=== PATIENT | male | born 1980 | race Caucasian/White ===

== ENCOUNTER 2017-04-09 17:29 | Emergency (ER) | payer OTHER ==
[~2017-04-09] VITALS: Ht 188 cm; Wt 104.3 kg
[2017-04-09] MEDS ORDERED: BACTRIM DS TAB1 EACH PO (18:36)
[2017-04-09] MEDS ORDERED: IBUPROFEN 600600 M1 PO (18:36)
[2017-04-09] MEDS ORDERED: ULTRAM 50MG TAB50 MG PO (18:36)
== END 2017-04-09 19:05 | disposition home or self-care (01) ==
LOC: ER 17:29
DX: L02.811 Cutaneous abscess of head [any part, except face] (principal); L02.414 Cutaneous abscess of left upper limb; L02.211 Cutaneous abscess of abdominal wall; L02.214 Cutaneous abscess of groin; F17.220 Nicotine dependence, chewing tobacco, uncomplicated; Z98.890 Other specified postprocedural states

== ENCOUNTER 2017-06-30 16:15 | Emergency (ER) | payer OTHER ==
[~2017-06-30] VITALS: Ht 188 cm; Wt 104.3 kg
[~2017-06-30 16:15] MED LIST: BACTRIM DS TAB1 EACH PO; IBUPROFEN 600600 M1 PO; ULTRAM 50MG TAB50 MG PO
[2017-06-30] MEDS ORDERED: AMOXICILLIN500 M1 PO (16:49)
[2017-06-30] MEDS ORDERED: IBUPROFEN 600600 M1 PO (16:49)
[2017-06-30] MEDS ORDERED: TESSALON PERLE100 MG PO (17:13)
== END 2017-06-30 17:17 | disposition home or self-care (01) ==
LOC: ER 16:15
DX: J02.0 Streptococcal pharyngitis (principal); F17.220 Nicotine dependence, chewing tobacco, uncomplicated

== ENCOUNTER 2017-10-02 16:39 | Emergency (ER) | payer OTHER ==
[~2017-10-02] VITALS: Ht 177.8 cm; Wt 90.7 kg
[~2017-10-02 16:39] MED LIST changes: +AMOXICILLIN500 M1 PO; +TESSALON PERLE100 MG PO
[2017-10-02] MEDS ORDERED: PROAIR HFA8.5 GM INH (17:44)
[2017-10-02] MEDS ORDERED: TUSSIONEX PENN115 ML PO (17:44)
[2017-10-02 18:26] VITALS: BP 128/71
== END 2017-10-02 18:27 | disposition home or self-care (01) ==
LOC: ER 16:39
DX: J06.9 Acute upper respiratory infection, unspecified (principal); R42 Dizziness and giddiness; M79.1 Myalgia; F17.200 Nicotine dependence, unspecified, uncomplicated

== ENCOUNTER 2017-11-01 02:22 | Emergency (ER) | payer OTHER ==
[~2017-11-01] VITALS: Ht 188 cm; Wt 97.5 kg
[~2017-11-01 02:22] MED LIST changes: +PROAIR HFA8.5 GM INH; +TUSSIONEX PENN115 ML PO
[2017-11-01 02:30] VITALS: BP 129/90
[2017-11-01 03:06] LABS: URINE BILIRUBIN NEGATIVE (Negative); URINE BLOOD NEGATIVE (Negative); URINE CLARITY CLEAR; URINE COLOR YELLOW; URINE GLUCOSE-RANDOM* NEGATIVE (Negative); URINE KETONES NEGATIVE (Negative); URINE LEUKOCYTES NEGATIVE (Negative); URINE NITRITE NEGATIVE (Negative); URINE PROTEIN (DIPSTICK) NEGATIVE (Negative); URINE SPECIFIC GRAVITY >= 1.030 (1.005-1.035); URINE UROBILINOGEN 0.2 E.U./dl (0.2-1.0)
[2017-11-01] MEDS ORDERED: IBUPROFEN 400400 M2 PO (03:11)
[2017-11-01] MEDS ORDERED: NORCO 5-325 TA1 EACH PO (03:11)
== END 2017-11-01 03:21 | disposition home or self-care (01) ==
LOC: ER 02:22
PROVIDERS: Emergency Medicine
DX: M94.0 Chondrocostal junction syndrome [Tietze] (principal); F17.220 Nicotine dependence, chewing tobacco, uncomplicated

== ENCOUNTER 2019-05-06 17:55 | Emergency (ER) | payer OTHER ==
[~2019-05-06] VITALS: Ht 188 cm; Wt 102.1 kg
[~2019-05-06 17:55] MED LIST changes: +IBUPROFEN 400400 M2 PO; +NORCO 5-325 TA1 EACH PO
[2019-05-06] MEDS ORDERED: NORCO 5-325 TA1 EAC2 PO (19:51)
[2019-05-06] MEDS ORDERED: AMOXICILLIN 50500 MG PO (19:51)
[2019-05-06 20:18] VITALS: BP 123/87
== END 2019-05-06 20:29 | disposition home or self-care (01) ==
LOC: ER 17:55
DX: S22.31XA Fracture of one rib, right side, initial encounter for closed fracture (principal); J02.9 Acute pharyngitis, unspecified; F17.220 Nicotine dependence, chewing tobacco, uncomplicated; Y04.0XXA Assault by unarmed brawl or fight, initial encounter; Y93.89 Activity, other specified; Y92.89 Other specified places as the place of occurrence of the external cause; Y99.8 Other external cause status